=== PATIENT | female | born 1975 | race Caucasian/White ===

== ENCOUNTER → 2016-12-02 | Outpatient (CLI) | payer OTHER ==
--- NOTE | 2016-12-02 13:12 | MR ---
EXAMINATION TYPE: MR knee LT wo con DATE OF EXAM: 12/02/2016 COMPARISON: Plain film 11/21/2016 HISTORY: Left knee pain TECHNIQUE: Multiplanar, multisequence imaging of the left knee is performed without IV contrast. FINDINGS: MEDIAL MENISCUS: Posterior horn shows linear increased signal which extends to the articular surface and is somewhat stellate configuration. Pseudoextrusion of the medial meniscus is present. There is s uggestion of a frayed appearance. LATERAL MENISCUS: Anterior and posterior horns are intact without tear. CRUCIATE LIGAMENTS: The anterior and posterior cruciate ligaments are intact and unremarkable. COLLATERAL LIGAMENTS: The medial collateral ligament and lateral collateral ligament complex are inta ct and unremarkable. EXTENSOR MECHANISM: Visualized quadriceps and patellar tendons are intact. EFFUSION: Minimal effusion present. POPLITEAL CYST: No popliteal/madsen cyst. TRICOMPARTMENT SPACES: Narrowed in the medial compartment. 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 BONE MARROW SIGNAL: No focal abnormal marrow signal is appreciated. OTHER: Marginal spurring is present especially in the medial compartment IMPRESSION: Tear of the posterior horn of the medial meniscus may be degenerative, there are osteoarthritic painting es.
== END | disposition home or self-care (01) ==
LOC: RADMRIMAIN 10:14
PROVIDERS: ATTEND Orthopaedic Surgery
DX: S83.242A Other tear of medial meniscus, current injury, left knee, initial encounter (principal)

== ENCOUNTER → 2017-01-04 | Outpatient (CLI) | payer OTHER ==
[2017-01-04 14:47] LABS: Potassium 4.1 mmol/L (3.5-5.1)
[2017-01-04 14:51] LABS: Basophils # (A) 0.1 k/uL (0-0.2); Basophils % (A) 1 %; CH 30.6; CHCM 34.1; Eosinophils # (A) 0.1 k/uL (0-0.7); Eosinophils % (A) 1 %; HCT 45.2 % (34.0-46.0); HDW 2.47; Luc % (Auto) 2; Lymphocytes # (A) 2.8 k/uL (1.0-4.8); Lymphocytes % (A) 23 %; MCHC 33.3 g/dL (31.0-37.0); MCV 90.1 fL (80.0-100.0); Mean Platelet Volume 8.6; Monocytes # (A) 0.7 k/uL (0-1.0); Monocytes % (A) 6 %; Neutrophils # (A) 8.6 k/uL (1.3-7.7); Neutrophils % (A) 69 %; RBC 5.02 m/uL (3.80-5.40); RDW 13.7 % (11.5-15.5); WBC 12.5 k/uL (3.8-10.6); WBC (Perox) 12.29
== END | disposition home or self-care (01) ==
LOC: LABPAT 14:13
PROVIDERS: ATTEND Orthopaedic Surgery
DX: Z01.812 Encounter for preprocedural laboratory examination (principal); M23.92 Unspecified internal derangement of left knee
CPT/HCPCS: 80051; 85025

== ENCOUNTER 2017-01-06 06:55 | Day surgery (SDC) | payer OTHER ==
[2017-01-04 14:43] VITALS: BMI 34.0
--- NOTE | 2017-01-05 09:46 | HP ---
HISTORY AND PHYSICAL CHIEF COMPLAINT: Left knee pain. 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 She is having medial pain with walking and stairs. She notes intermittent popping and grinding. She notes intermittent giving way. She has tried previous anti-inflammatories for this. PAST MEDICAL HISTORY: Negative. PAST SURGICAL HISTORY: Significant for cholecystectomy, section, and right foot surgery. CURRENT MEDICATIONS: None. . ALLERGIES: ASPIRIN. FAMILY HISTORY: Significant for cancer. SOCIAL HISTORY: Negative for current tobacco or alcohol use. 16-POINT REVIEW OF SYSTEMS: Otherwise reviewed and is noncontributory. PHYSICAL EXAMINATION: The patient is approximately 5 foot 4, 200 pounds of endomorphic habitus. HEENT exam is nonfocal. Neck is supple. She has painless passive motion of her left hip. Straight leg raise is negative. Active motion left knee -4 to 135 degrees of flexion. She is tender about the medial joint line. She has a trace effusion. Collaterals are stable, Taylor is negative, Adalgisa's elicits medial pain. Her distal neurovascular exam appears to be intact in the left lower extremity. MRI report 12/02/2016 of the left knee shows a posterior medial meniscal tear along with medial compartment osteoarthrosis. IMPRESSION: 1. Left knee symptomatic medial meniscal tear. 2. Left knee moderate medial compartment osteoarthrosis. 3. Increased body mass index. RECOMMENDATIONS: I talked to the patient at length regarding her treatment options. She is having pain and mechanical symptoms that limit her. After thorough discussion, she opts to proceed with surgery. We will plan to proceed with left knee arthroscopic evaluation with probable partial medial meniscectomy and possible medial femoral chondrectomy. We will likely perform that as an outpatient procedure. Risks and benefits were discussed at length in layman's terms. MMODL / IJN: [id number] /
[~2017-01-06 06:55] MED LIST: DEXAMETHASONE SOD PHOSPHATE 10 MG/ML 1 ML VIAL IV ONE; LACTATED RINGERS 1,000 ML IV SCH; MIDAZOLAM 2 MG/2 ML VIAL IV PRN; ONDANSETRON 4 MG/2 ML VIAL IVP ONE; SCOPOLAMINE 1.5MG/72HR PATCH TRANSDERM ONE; ceFAZolin 2 GM in SODIUM CHLORIDE 0.9% 100 ML IVPB ONE
[2017-01-06] MEDS ORDERED: LIDOCAINE 1% 20 ML VIAL (10MG/ML) FOR IV START INTRADERMA ONE (07:41)
[2017-01-06] MEDS ORDERED: PROPOFOL 10 MG/ML 20 ML VIAL IV ONE (08:04)
[2017-01-06] MEDS ORDERED: fentaNYL (PF) 50 MCG/ML 2 ML AMP ONE (08:04)
[2017-01-06] MEDS ORDERED: LIDOCAINE 1% INJ 10MG/ML (20 ML MDV) ONE (08:04)
[2017-01-06] MEDS ORDERED: KETOROLAC 30 MG/ML 1 ML VIAL ONE (08:04)
[2017-01-06] MEDS ORDERED: MIDAZOLAM 2 MG/2 ML VIAL ONE (08:04)
[2017-01-06 08:51] VITALS: TEMP 97.2
--- NOTE | 2017-01-06 09:00 | P.OP ---
Date of Procedure: 01/06/17 Preoperative Diagnosis: Left knee internal derangement Postoperative Diagnosis: Left knee posterior medial meniscal tear/grade 3 chondral injury distal medial femoral condyle/grade 2/3 chondral injury medial patellar facet/reactive synovitis Procedure(s) Performed: Left knee arthroscopic partial medial meniscectomy/medial femoral chondrectomy/ patellar chondroplasty/partial synovectomy of the medial and patellofemoral compartments Anesthesia: GETA Surgeon: Sadiq Ceron Estimated Blood Loss (ml): 10 Pathology: none sent Condition: stable Disposition: PACU Indications for Procedure: The patient's a 41-year-old female who presents with progressive left knee pain and mechanical symptoms despite conservative measures. A discussion of the risks and benefits of operative intervention versus continued conservative measures was made with patient. She opted to proceed with surgery. Operative risks to include infection, neurovascular injury, development of blood clots, possible incomplete resolution of symptoms, possible worsening symptoms and need for subsequent procedures was discussed. Informed consent was obtained. Operative Findings: As below Description of Procedure: The patient was brought to the operating room, and after induction of general anesthesia examined the left knee. Collaterals were stable, Taylor was negative, and posterior drawer was negative. The left lower extremity was prepped and draped in normal fashion. A superior lateral portal was made through a 3 mm skin incision superior and lateral to the patella. This was used for outflow. A lateral portal was made through a 5 mm vertical skin incision lateral to the patella tendon above the joint line. Diagnostic arthroscopy was performed. A medial portal was made through a similar incision medial to the patellar tendon above the joint line. On inspection of the medial compartment, she was noted to have a complex tear involving the middle to posterior one third of the medial meniscus in the white-red junction. This was debrided back to stable base with a motorized shaver and straight baskets. The edges were contoured. A corresponding grade 3 chondral injury was noted involving the distal medial portion of the medial femoral condyle. There was a loose chondral flap. This was debrided back to stable base with a motorized shaver. Reactive synovitis involving the anterior medial compartment as well as the patellofemoral compartment was debrided with a motorized shaver. On inspection of the notch, the anterior cruciate ligament appeared to be intact. On inspection of the lateral compartment, minimal degenerative changes were noted. The meniscus was intact. On inspection patellofemoral articulation, grade 2-3 chondral fibrillation was noted involving the medial patellar facet. This was debrided back to a stable base with a motorized shaver. The gutters were clear debris. The knee was then thoroughly irrigated. The portals were closed with Steri-Strips. A sterile dressing was applied in addition to a compression stocking. The patient was awoken from general anesthesia and transferred to recovery room in good condition. Blood loss was estimated 10 mL. No complications were incurred.
[2017-01-06 09:02] VITALS: RESP 16
[2017-01-06] MEDS: HYDROmorphone 1 MG/ML 1 ML SYRINGE IVP PRN ×2 (09:05→09:15)
[2017-01-06] MEDS ORDERED: LACTATED RINGERS 1,000 ML IV ONE ×2 (09:26)
[2017-01-06 11:08] VITALS: BP 139/67; PULSE 65
== END 2017-01-06 11:04 | disposition home or self-care (01) ==
LOC: OR 06:55
PROVIDERS: ATTEND Orthopaedic Surgery
DX: S83.242A Other tear of medial meniscus, current injury, left knee, initial encounter (principal); X58.XXXA Exposure to other specified factors, initial encounter; M65.862 Other synovitis and tenosynovitis, left lower leg; Z88.6 Allergy status to analgesic agent
CPT/HCPCS: 81025; 29881; J2250; J1100; J0690; J2405; J2001; J3010; J1885; J1170; J2704